=== PATIENT | female | born 1930 | race Caucasian/White ===

== ENCOUNTER 2016-12-23 01:53 | Inpatient (IN) | payer OTHER, MEDICARE ==
[~2016-12-23] VITALS: Ht 154.9 cm; Wt 56.7 kg
[~2016-12-23 01:53] MED LIST: CARTIA PO; COUMADIN; SPIRIVA18 MCG INH; TRAMADOL HCL50 M1 PO
--- NOTE | 2016-12-23 11:43 | Admission Core Measures ---
Admission Meds I reviewed the following Meds: Current Medications Sig/Jose Manuel Start time Last Medication Dose Stop Time Status Admin Cefazolin Sodium 2,000 MG ONCE 12/23 0000 NR (Kefzol-Ancef Inj) 12/23 4319 Acute Coronary Syndrome Inclusion Criteria ACS Diagnosis No Inpatient Core Measures LDL Reminder: If No, please order W/I first 24hr of stay Congestive Heart Failure Inclusion Criteria CHF Diagnosis No Cerebrovascular accident Inclusion Criteria CVA/TIA Diagnosis No Inpatient Core Measures Bedside Swallow Eval Reminder: If BSE failed, place ST order Antithrombotic Reminder: Order Antithrombotic Medication by end of day 2 Antithrombotic Reminder: Document Reason Antithrombotic Not ordered by end of day 2 AFIB/Flutter Reminder: If Present, add to problem list AFIB/Flutter Reminder: Order Anticoag Medication for pts with AFIB/Flutter Atherosclerosis Reminder: If Present, add to problem list LDL Reminder: If No, please order W/I first 24hr of stay PT Order Reminder: If No, please order Venous thromboembolism Inpatient Core Measures VTE Risk Factors: Age > 40, Surgery No Mech VTE prophylaxis d/t No contraindications No VTE Pharm Prophylaxis d/t No contraindications Inclusion Criteria - Per Current guidelines, there needs to be overlap - treatment for the first 5 days of Warfarin therapy. - Parenteral Anticoagulation (IV or SC) needs to be - given along with Warfarin therapy. VTE Diagnosis No VTE Type NONE VTE Confirmed by (Test) NONE Problem List As ranked by this Provider includes Assessment & Plan 1. Status post total hip replacement, left HOME MEDS Home Med List [CARTIA] 240 MG 1 TAB PO DAILY A FIB (Reported) Tiotropium [place] (Spiriva) 18 MCG CAP.W.DEV 1 CAP INH DAILY COPD (Reported) Tramadol HCl 50 MG TABLET 1 TAB PO Q6P PRN PAIN (Reported)
[2016-12-23 12:45] LABS: PT 11.6 SEC (9.4-12.5)
[2016-12-23] MEDS ORDERED: CARTIA XT240 M1 PO (14:08)
[2016-12-23] MEDS ORDERED: ASPIRIN EC325 M2 PO (14:21)
[2016-12-23] MEDS ORDERED: COLACE100 M1 PO (14:22)
[2016-12-23] MEDS ORDERED: MIRALAX17 G1 PO (14:22)
[2016-12-23] MEDS ORDERED: DILAUDID2 M1 PO (14:23)
--- NOTE | 2016-12-23 14:26 | Surgical Discharge Summary ---
Visit Information Visit Dates Admission Date: 12/23/16 Discharge Date: 12/26/16 History of Present Illness Chief Complaint: Left hip DJD/osteoarthritis, left hip pain Medical History Cardiovascular: AFIB Isolation History: Standard Surgical History Pertinent Surgical History: hip replacement Review of Systems: See H&P Hospital Course Course Attending Physician: MARLY REDMOND MD Primary Care Physician: ALEXANDRA HARRINGTON,JULIO [facility] Course: Patient was admitted to [facility] for elective surgery on 12/23/2016 and underwent left anterior total hip replacement. The patient tolerated the procedure well, without complications. The postoperative course remained uneventful. Pain was well controlled with oral pain medication, tolerated a regular diet, and voiding without difficulty. The patient was evaluated by physical therapy during admission, was deemed stable from a medical standpoint, and was discharged. Allergies: Coded Allergies: No Known Allergies (12/19/16) Significant Procedures: 12/23/2016 left anterior total hip replacement Disposition Summary Disposition Principal Diagnosis: Left hip DJD/osteoarthritis Additional Diagnosis: Atrial fibrillation Discharge Disposition: SNF Discharge Instructions General Discharge Information Code Status: Full Code Patient's Diet: Heart healthy Patient's Activity: Avoid strenuous activity. You may ambulate as desired with rolling walker and progressed per PT recommendations. No driving while using narcotics and until cleared by M.D. Follow-Up Instructions/Appts: Incision: Dry dressing. May shower. No baths. No ointments of any kind. Ice as needed. Bowel regimen: Colace and or MiraLAX Weight-bearing as tolerated aspirin 325mg 2x per day until INR theraputic Please check INR daily until therapeutic. Titrate Coumadin dose to keep INR 2-3 or as per usual A. fib guidelines. Follow-up with Dr. Redmond in 6 weeks. Call office for fevers greater than 101.5, excessive drainage or inability to bear weight on operative extremity. Visiting nurse will remove luis daniel. Medications at Discharge Discharge Medications: Continue taking these medications: [COUMADIN] DAILY Instructions: TITRATE TO KEEP INR 2-3 Tiotropium [place] (Spiriva) 18 MCG CAP.W.DEV 1 Capsule Inhale through mouth DAILY Tramadol HCl (Tramadol HCl) 50 MG TABLET 1 Tablet ORAL EVERY SIX HOURS NEEDED as needed for PAIN Diltiazem HCl (Cartia Xt) 240 MG CAP.ER.24H 1 Capsule ORAL DAILY Start taking the following new medications: Aspirin (Ecotrin*) 325 MG TABLET.DR 1 Tablet ORAL TWICE DAILY Days = 4 No Refills Polyethylene Glycol 3350 (Miralax) 17 GRAM POWD.PACK 1 Packet ORAL DAILY Days = 7 No Refills Instructions: HOLD FOR LOOSE BM Docusate Sodium (Colace) 100 MG CAPSULE 1 Capsule ORAL TWICE DAILY Days = 7 No Refills Instructions: HOLD FOR LOOSE BM Hydromorphone HCl (Dilaudid) 2 MG TABLET 1 Tablet ORAL EVERY 4 HOURS NEEDED as needed for PAIN Qty = 18 No Refills
--- NOTE | 2016-12-23 15:58 | Patient Discharge Instructions ---
Discharge Instructions General Discharge Information You were seen/treated for: Left hip DJD/osteoarthritis You had these procedures: Left anterior total hip replacement Watch for these problems: Fever greater than 101, excessive drainage from the wound, inability to bear weight on the operative side Do not soak the wound: Yes No bath, but you may shower: Yes Other wound care: Dry dressing change once daily starting postoperative day #2. You may shower as desired. No baths. No ointments of any kind. Ice as needed for comfort. Special Instructions: Please check INR daily until therapeutic and titrate Coumadin dose to keep INR 2 -3 or as per usual A. fib guidelines. dc aspirin when INR is theraputic Diet Continue normal diet: Yes Recommended Diet: Heart Healthy Activity Full Activity/No Limits: No Activity Self Limited: Yes Pounds, do NOT lift more than: 5 Activity Limited to: Weight bear as tolerated Other activity limits: Avoid strenuous activity. You may ambulate as desired with rolling walker and progressed per PT recommendations. No driving while using narcotics and until cleared by M.D. Acute Coronary Syndrome Inclusion Criteria At DC or during hospital stay patient has or had the following: ACS DIAGNOSIS No Discharge Core Measures Meds if any: Prescribed or Continued at Discharge Meds if any: NOT Prescribed or Continued at Discharge Congestive Heart Failure Inclusion Criteria At DC or during hospital stay patient has or had the following: CHF DIAGNOSIS No Discharge Core Measures Meds if any: Prescribed or Continued at Discharge Meds if any: NOT Prescribed or Continued at Discharge Cerebrovascular accident Inclusion Criteria At DC or during hospital stay patient has or had the following: CVA/TIA Diagnosis No Discharge Core Measures Meds if any: Prescribed or Continued at Discharge Meds if any: NOT Prescribed or Continued at Discharge Venous thromboembolism Inclusion Criteria VTE Diagnosis No VTE Type NONE VTE Confirmed by (Test) NONE Discharge Core Measures - Per Current guidelines, there needs to be overlap - treatment for the first 5 days of Warfarin therapy. - If discharged on Warfarin prior to 5 days of - overlap therapy, the patient will need to be - assessed for post discharge needs including - *Post discharge parental anticoagulation - *Warfarin and/or parental anticoagulation education - *Follow up date to check INR post discharge At least 5 days overlap therapy as Inpatient No Meds if any: Prescribed or Continued at Discharge Note: Overlap Therapy is Warfarin and Anticoagulant Meds if any: NOT Prescribed or Continued at Discharge
--- NOTE | 2016-12-23 16:25 | Operative Report ---
Operative/Inv Procedure Report Surgery Date: 12/23/16 Name of Procedure: Left total hip replacement Pre-Operative Diagnosis: Primary left hip DJD Post-Operative Diagnosis: Same Estimated Blood Loss: 250 Surgeon/Parts Data Writer: NYLA HARRINGTON,MARLY Mckeon Anesthesia: block Operative/Procedure Note Note: Description of Procedure: The patient was taken to the operating room and positively identified. After induction of spinal anesthesia and administration of appropriate pre-operative antibiotics, the patient was positioned supine on the operating room table and all bony prominences were well padded. After performing a surgical timeout, the left lower extremity was prepped and draped in the usual sterile fashion. A direct anterior approach was made to the left hip. The incision was carried sharply through superficial soft tissues to the level of the fascia. Meticulous hemostasis was maintained with Bovie electocautery. The fascia over the tensor fascia minda muscle was opened sharply and the interval between the TFL and the sartorius was entered bluntly taking care to stay lateral to the lateral femoral cutaneous nerve. Retractors were placed around the femoral neck and the pericapsular fat was identified. The ascending branches of the lateral femoral circumflex vessels were identified and carefully coagulated. The pericapsular fat and anterior capsule were then resected. A napkin ring osteotomy was performed and the femoral head was removed without difficulty. Attention was then turned to the acetabulum. After appropriate placement of retractors, the acetabulum was exposed. Soft tissue was cleaned from the acetabular margin and notch. Overhanging osteophytes were removed and the teardrop was exposed. The acetabulum was then sequentially reamed to accept a 58 mm Barnet Tritanium hemispherical solid back shell. This was impacted into place in the appropriate position and fitted with a 36 mm Trident X3 zero degree polyethylene insert. Attention was then turned to the femur. After performing the appropriate ligament releases, the proximal femur was exposed. It was then sequentially broached to accept a size 6 Barnet Accolade 2 stem. This was trialed for leg length and stability. The trial component was removed and the final component was impacted into place. The trunnion was carefully cleaned and fit with a 36 mm,+ 0 Biolox delta ceramic femoral head. The hip was reduced and put through a full range of motion and found to be stable. The articular space was then irrigated with sterile saline. The periarticular soft tissues were infilitrated with Marcaine. The fascial layer was closed with interrupted #1 vicryl suture and the skin was re-approximated with interrupted 2 -0 vicryl. The skin was closed with a running 3-0 V-Lock suture. Steri-strips and a sterile dressing were applied. The patient was awakened and taken to the recovery room in satisfactory condition.
--- NOTE | 2016-12-23 17:02 | PN- Orthopedic ---
Subjective Subjective: Pt is seen in pacu. She has no major complaints. Denies pain. States that she feels "great." Nothing po as of yet. Benitez remains in place. Denies DOHERTY, dizziness, CP, SOB. Objective Vital Signs and I&Os Vitals stable. Afebrile. Physical Exam: Gen: Pt is awake and alert. NAD. Verbalizing well. Cardiac: irreg Pulm: CTA bilaterally. Ext: L hip dressing c/d/i. No significant swelling, drainage or redness. No evidence of hematoma. Leg is warm. sensation is intact from the thigh to the toes bilaterally. strength of DF and PF are 4/5 bilaterally. Assessment/Plan Assessment/Plan Pt is an 86 yo female with a hx of afib (on coumadin at home) who is now POD #0 s/p L thr. Plan: -PT consult for mobilization. WBAT with rolling walker. -Pain control with morphine or Po dilaudid when tolerating po. -Advance diet as tolerated. Heplock IV when tolerating adequate po. -Zofran for nausea as needed. -Colace and miralax for bowel regimen. -ASA 325 bid for DVT ppx x 1 week. Pt can resume her usual coumadin dose today. Alps and Reynaldo's as well. -Ancef x 2 doses for prophylaxis. -Ok to dc benitez in pacu. Await void. -Plan for discharge to rehab in 3 days. Core Measures/Miscellaneous Venous Thromboembolism VTE Risk Factors: Age > 40, Surgery VTE Contraindications: No Contraindications VTE Diagnosis: No VTE Type: NONE VTE Confirmed by (Test): NONE Beta [place] Is Beta [place] a Home Med? No Antibiotics Is Patient on Antibiotics? Yes If Yes: prophylaxis
--- NOTE | 2016-12-23 17:25 | RADIOLOGY REPORT ---
EXAMINATION: XR HIP, LEFT CLINICAL INFORMATION: Status post left hip replacement COMPARISON: None TECHNIQUE: Two views of the left hip. FINDINGS: Status post left hip replacement. Orthopedic components in place with no dislocation. There is air in the soft tissues from the surgery. IMPRESSION: Status post left hip replacement.
[2016-12-23 19:18] VITALS: BP 130/70
--- NOTE | 2016-12-23 19:45 | NUR ---
PT UP TO FLOOR AT 1850. PT A/O X3, PT ON RA. DSD TO LHIP C/D/I,. + CMS TO BLE . PT DENIES PAIN. CALL [facility] USE INSTRUCTED. IVF INFUSING PER EMAR. REPORT GIVEN TO ONCOMING RN.
[2016-12-23 21:00] VITALS: BP 100/60
[2016-12-23 23:03] VITALS: BP 110/60
[2016-12-24 01:18] VITALS: BP 98/60
[2016-12-24 06:34] VITALS: BP 100/70
--- NOTE | 2016-12-24 07:31 | PN- Orthopedic ---
Subjective Subjective: Patient without complaints, she is very happy, comfortable, she has no pain. Objective Vital Signs and I&Os Vital Signs Date Time Temp Pulse Resp B/P B/P Pulse O2 O2 Flow FiO2 Mean Ox Delivery Rate 12/24 0634 97.9 70 20 100/70 96 Room Air 12/24 0118 97.6 68 20 98/60 96 Room Air 12/23 2303 97.6 66 20 110/60 94 Room Air 12/23 2100 97.6 73 20 100/60 97 Room Air 12/23 1918 97.1 78 16 130/70 94 Room Air Intake & Output 12/24 0800 12/24 0000 12/23 1600 12/23 0800 12/23 0000 12/22 1600 Intake Total 1080 Output Total 900 700 Balance -900 380 Intake, IV 600 Intake, Oral 480 Output, Urine 900 700 Patient 125 lb Weight Weight Reported by Patient Measurement Method Physical Exam: Well-developed well-nourished no apparent distress. HEENT: Atraumatic, extraocular motion intact Neck: Supple, no lymphadenopathy Respiratory: No respiratory distress Extremities: No edema left lower extremity hip dressing in place, Dressing clean dry and intact Mild thigh edema No signs of infection. No shortening or rotation Hip range of motion is limited and without unexpected pain Neurovascularly intact distally Bilateral calves are supple, nontender. Neuro: Alert and oriented x3 Psych: Mood affect normal, normal memory normal judgment. Skin: Warm and dry, no rash on exposed skin Results Last 48 Hours of Labs: Laboratory Tests 12/23 1209 Coagulation PT (9.4 - 12.5 SEC) 11.6 INR (0.90 - 1.19) 1.11 Labs pending this morning Assessment/Plan Assessment/Plan Pt is an 86 yo female with a hx of afib (on coumadin at home) who is now POD # 1 s/p L thr, anterior approach. Plan: -PT, out of bed WBAT with rolling walker. -Pain control with Po dilaudid or Tylenol. -DC IV fluids -follow labs this am -Zofran for nausea as needed. -Colace and miralax for bowel regimen. -ASA 325 bid for DVT ppx x 1 week. Pt can resume her usual coumadin dose, follow INR. Alps -Ancef x 2 doses for prophylaxis completed. -Plan for discharge to rehab in 2 days. Core Measures/Miscellaneous Venous Thromboembolism VTE Risk Factors: Age > 40, Surgery VTE Contraindications: No Contraindications VTE Diagnosis: No VTE Type: NONE VTE Confirmed by (Test): NONE Beta [place] Is Beta [place] a Home Med? No Antibiotics Is Patient on Antibiotics? Yes If Yes: prophylaxis
[2016-12-24 08:11] LABS: ABSOLUTE BASOPHIL COUNT 0 /CUMM (0.0-0.2); ABSOLUTE EOSINOPHIL COUNT 0 /CUMM (0.0-0.7); ABSOLUTE GRANULOCYTE CT 10.5 /CUMM (1.4-6.5); ABSOLUTE LYMPH COUNT 0.7 /CUMM (1.2-3.4); BASOPHIL % 0 % (0.0-2.0); EOSINOPHIL % 0 % (0-5); GRANULOCYTE % 86.2 % (42.2-75.2); HEMATOCRIT 32.7 % (37-47); MEAN CORPUSCULAR HGB 32.1 PG (27.0-31.0); MEAN CORPUSCULAR HGB CONC 34.3 G/DL (33.0-37.0); MEAN CORPUSCULAR VOLUME 93.7 FL (81.0-99.0); MEAN PLATELET VOLUME 8.7 FL (7.4-10.4); PLATELET COUNT 221 /CUMM (130-400); RBC DISTRIBUTION WIDTH 13.4 % (11.5-14.5); RED BLOOD CELL CT 3.49 /CUMM (4.20-5.40); WHITE BLOOD CELL COUNT 12.2 /CUMM (4.8-10.8)
[2016-12-24 08:53] VITALS: BP 117/58
[2016-12-24 14:27] VITALS: BP 112/58
[2016-12-24 22:17] VITALS: BP 120/70
[2016-12-25 06:25] VITALS: BP 114/54
--- NOTE | 2016-12-25 07:27 | PN- Orthopedic ---
Subjective Subjective: POD#2 S/P LEFT ZULEIKA SITTING UP IN CHAIR LEFT HIP PAIN ISSUES OVERNIGHT NO ICE ON HIP CURRENTLY DENIES CP, SOB, NO N+V WITH DIET Objective Vital Signs and I&Os Vital Signs Date Time Temp Pulse Resp B/P B/P Pulse O2 O2 Flow FiO2 Mean Ox Delivery Rate 12/25 624 97.6 78 20 114/54 98 Room Air 12/24 2217 98.1 65 20 120/70 95 / 1427 97.3 75 20 112/58 94 / 1035 Room Air 12/24 1011 Room Air / 0853 97.4 83 20 117/58 96 Intake & Output 12/25 0800 12/25 0000 12/24 1600 12/24 0800 12/24 0000 12/23 1600 Intake Total 250 760 426 237 4167 Output Total 812 355 8732 700 Balance 250 360 -220 -560 380 Intake, IV 10 10 0 600 600 Intake, Oral 240 750 480 240 480 Number 0 0 Bowel Movements Output, Urine 089 668 6905 700 Patient 125 lb Weight Weight Reported by Patient Measurement Method Physical Exam: CV: RRR LUNGS: CLEAR ABD: SOFT, +BS EXT: DRSG CHANGED, WOUND CD/I NO CALF TENDERNESS BIALT DISTAL CMS INTACT Assessment/Plan Assessment/Plan ORTHO STABLE PLAN OOB WITH PT/STAIRS TITRATE COUMADIN FOR DVT PROPHYLAXIS HOME V REAHAB Core Measures/Miscellaneous Venous Thromboembolism VTE Risk Factors: Age > 40, Surgery VTE Contraindications: No Contraindications VTE Diagnosis: No VTE Type: NONE VTE Confirmed by (Test): NONE Beta [place] Is Beta [place] a Home Med? No Antibiotics Is Patient on Antibiotics? Yes If Yes: prophylaxis
[2016-12-25 08:37] LABS: PT 12.4 SEC (9.4-12.5)
[2016-12-25 15:16] VITALS: BP 108/58
[2016-12-25 22:14] VITALS: BP 102/58
[2016-12-26 07:16] VITALS: BP 130/60
[2016-12-26 08:22] LABS: PT 12.3 SEC (9.4-12.5)
--- NOTE | 2016-12-26 08:23 | PN- Orthopedic ---
Subjective Subjective: Patient comfortable, no significant pain in the left hip. No nausea vomiting. No fever or flulike illness, no events overnight, she has yet to have a bowel movement, no abdominal pain, she is passing gas Objective Vital Signs and I&Os Vital Signs Date Time Temp Pulse Resp B/P B/P Pulse O2 O2 Flow FiO2 Mean Ox Delivery Rate 12/26 0716 98.4 91 20 130/60 94 Room Air 12/25 2214 99.3 88 20 102/58 90 Room Air 12/25 1516 98.3 79 18 108/58 94 12/25 0926 Room Air 12/25 0914 Room Air Intake & Output 12/26 1600 12/26 0800 12/26 0000 12/25 1600 12/25 0800 12/25 0000 Intake Total 100 880 250 760 Output Total 900 200 400 Balance -900 100 680 250 360 Intake, IV 10 10 Intake, Oral 100 880 240 750 Number 0 0 Bowel Movements Output, Urine 900 200 400 Physical Exam: Well-developed well-nourished no apparent distress. HEENT: Atraumatic, extraocular motion intact Neck: Supple, no lymphadenopathy Respiratory: No respiratory distress Extremities: No edema Left lower extremity hip dressing in place, Dressing clean dry and intact with minimal bloody staining Incision without erythema Mild thigh edema No signs of infection. No shortening or rotation Hip range of motion is limited and without unexpected pain Neurovascularly intact distally Bilateral calves are supple, nontender. Neuro: Alert and oriented x3 Psych: Mood affect normal, normal memory normal judgment. Skin: Warm and dry, no rash on exposed skin Results Last 48 Hours of Labs: Laboratory Tests 12/26 12/25 0725 0600 Coagulation PT (9.4 - 12.5 SEC) Pending 12.4 INR (0.90 - 1.19) Pending 1.18 Assessment/Plan Assessment/Plan Postoperative 3 status post left total hip arthroplasty anterior approach Stable for discharge to [facility] facility today INR pending this morning, dose Coumadin based on this, continue aspirin until INR therapeutic Dulcolax suppository secondary to constipation Core Measures/Miscellaneous Venous Thromboembolism VTE Risk Factors: Age > 40, Surgery VTE Contraindications: No Contraindications VTE Diagnosis: No VTE Type: NONE VTE Confirmed by (Test): NONE Beta [place] Is Beta [place] a Home Med? No Antibiotics Is Patient on Antibiotics? Yes If Yes: prophylaxis
[2016-12-26 12:50] VITALS: BP 130/60
== END 2016-12-26 13:20 | DRG 470 ==
LOC: 2NA 01:53 → SDA 01:53 → ENRESERV 16:59 → 2NA 18:50 → ENPENDDIS 12-26 11:58 → 2NA 12-26 13:20
PROVIDERS: Physician Assistant Surgical; ADMIT Orthopaedic Surgery
PROC: 0SRB0JZ Replacement of Left Hip Joint with Synthetic Substitute, Open Approach (ICD-10-PCS; principal; 2016-12-23)
DX: M16.12 Unilateral primary osteoarthritis, left hip (principal); J44.9 Chronic obstructive pulmonary disease, unspecified; I48.91 Unspecified atrial fibrillation; Z87.891 Personal history of nicotine dependence; I10 Essential (primary) hypertension; Z79.01 Long term (current) use of anticoagulants; H40.9 Unspecified glaucoma
CPT/HCPCS: 2NASP; 36415; 73502-LT; 82436; 87086; 88304; 97110-GO; 97116-GO; 97161-GP; 97530-GO; J0690; J0735; J1100; J1170; J1200; J2250; J2405; J3010; J7042